=== PATIENT | female | born 1985 | race Caucasian/White ===

== ENCOUNTER 2017-02-13 11:15 | Emergency (ER) | payer OTHER ==
[~2017-02-13] VITALS: Ht 165.1 cm; Wt 93.0 kg
--- NOTE | ~2017-02-13 | CR181 ---
[facility] A Service of [facility] & [facility] RADIOLOGY TEXT RESULTS PATIENT: TAVO BEJARANO LOCATION: [facility] : 85 UNIT #: [id number] AGE: [address]: Yair Cherry MD SEX: F ORDER DR: [id number] [facility] [address] [place], [place] [address] [id number] E MR#: [id number] Acc #: [id number] NAME: TAVO BEJARANO : 1985 SEX: F STUDY DATE/TIME: 02/13/2017 14:10 UNIT: [facility] ROOM: STUDY DESCRIPTION: CR Lumbar Spine 2 or 3 Views Attending Physician: Yair Cherry M.D. Ordering Physician: Yair Cherry M.D. Primary Care Physician: Manda Gallagher M.D. MEDICAL IMAGING REPORT This report is preliminary unless electronic signature is present EXAM Lumbar spine, 02/13/2017. INDICATIONS Low back pain with lower extremity radiculopathy for 1 month. No trauma. FINDINGS Three views of the lumbar spine are compared with 08/20/2014. No fracture or subluxation is seen. There is a mild disc space narrowing at L5-S1. The discs are, otherwise, unremarkable. IMPRESSION Mild narrowing of the L5-S1 disc which may be degenerative. The exam is otherwise normal. Dictated by... Moshe Jhaveri Jr., M.D. THIS IS AN ELECTRONICALLY VERIFIED REPORT Moshe Jhaveri Jr., M.D. at 02/13/2017 10:33 PM BALJIT/gretchen TD: 02/13/2017 16:13 JOB #: [id number] MEDICAL IMAGING REPORT Page 1 of 1 COPY
[2017-02-13 12:12] LABS: URINE SOURCE CLEAN CATCH
[2017-02-13 12:17] LABS: URINE APPEARANCE CLOUDY; URINE BILIRUBIN NEG (NEG); URINE BLOOD NEG (NEG); URINE COLOR YELLOW; URINE GLUCOSE NEG (NEG); URINE KETONE NEG (NEG); URINE LEUKOCYTE ESTERASE TRACE (NEG); URINE NITRATE NEG (NEG); URINE PROTEIN NEG (NEG); URINE SPECIFIC GRAVITY 1.021 (1.003-1.035)
[2017-02-13 12:21] LABS: CULTURE INDICATED? YES; URBCS1 AUWI 0-2 /[HPF] (0-2); URINE BACTERIA AUWI 2+ (NEGATIVE); URINE SQUAMOUS EPITHELIAL CELL MOD /[HPF]
[2017-02-13 12:23] LABS: BASOPHIL% 0.7 % (0-2.5); EOSINOPHIL# 0.1 X10e3 (0-0.7); EOSINOPHIL% 1.6 % (0.0-7.0); HEMATOCRIT 38.3 % (35.0-45.0); HEMOGLOBIN 12.6 gm/dL (12.0-16.0); LYMPHOCYTE# 1.4 X10e3 (1.0-3.5); LYMPHOCYTE% 19.8 % (17.0-45.0); MEAN CELL VOLUME 86.8 FL (83-96); MEAN CORPUSCULAR HEMOGLOBIN 28.5 PG (28-34); MEAN CORPUSCULAR HGB CONC 32.9 g/dL (30-36); MEAN PLATELET VOLUME 8.4 FL (6.5-11.5); MONOCYTE# 0.6 X10e3 (0-1.0); MONOCYTE% 9.1 % (3.0-12.0); NEUTROPHIL# 4.9 X10e3 (1.5-7.1); NEUTROPHIL% 68.8 % (40-75); PLATELET COUNT 233 X10e3 (140-420); RED BLOOD COUNT 4.41 X10e (3.90-5.30); RED CELL DISTRIBUTION WIDTH 14.4 % (11.0-15.5); WHITE BLOOD COUNT 7.1 X10e3 (4.0-10.5)
[2017-02-13 12:27] LABS: DIFF IND NO
== END 2017-02-13 15:13 | disposition home or self-care (01) ==
LOC: CED 11:15
PROVIDERS: Emergency Medicine
DX: M54.5 Low back pain (principal); G89.29 Other chronic pain; Z91.040 Latex allergy status
CPT/HCPCS: 72100; 81003; 84703; 85025; 87086; 99283